=== PATIENT | female | born 1980 | race Caucasian/White ===

== ENCOUNTER 2018-10-12 12:34 | Outpatient (REF) | payer BC, SELFPAY | END 2018-10-12 12:54 | LOC: LBN 12:34 | PROVIDERS: PCP Internal Medicine; Visit Provider Nurse Practitioner Family | DX: R35.0 Frequency of micturition (principal) | CPT/HCPCS: 87086 ==

== ENCOUNTER 2019-01-03 16:30 | Emergency (ER) | payer BC, SELFPAY ==
[2019-01-03 16:32] VITALS: BP 116/86; PULSE 83; RESP 16; TEMP 37; O2SAT 96
--- NOTE | 2019-01-03 16:43 | DI.RAD_ITS ---
SYMPTOM/DIAGNOSIS: PAIN, AFTER CAUGHT IN DOOR. RIGHT INDEX FINGER: No fracture or dislocation is seen. IMPRESSION: Negative right index finger
--- NOTE | 2019-01-03 16:44 | ED.GENADUL_ITS ---
Discharge Plan Disposition Patient Disposition: HOME Condition: Improving Discharge Details Chief Complaint: Orthopedic Clinical Impression: Contusion of right index finger, Abrasion Primary Care Provider: Tobias Almonte ED Provider: Dionisio Stokes Home Meds and New Rx's Prescriptions: Continued collagen 1,000 mg tablet 1,000 mg PO DAILY RF: 0 Mirena 1 EACH intrauterine device 1 ea Intrauterine DAILY RF: 0 cholecalciferol (vitamin D3) [Vitamin D3] 2,000 UNIT capsule 2,000 unit PO PRN RF: 0 Hair, Skin and Nails Advanced 1 EACH tablet 1 ea PO DAILY RF: 0 Fiber Gummies 2 gram Tablet,Chewable 2 PO DAILY RF: 0 Discharge Instructions Instructions: Contusion in Adults (ED), Abrasion (ED) Additional Instructions: Leave splint in place for 48 to 72 hours. Then may remove stockinette. Ice to reduce pain and swelling. You may continue to use Tylenol if needed for discomfort. The Dermabond and Steri-Strips will wear off in approximately 7 to 10 days time. Return if you develop a fever, redness, discharge from the wound or any other acute concern Medical Decision Making 38-year-old female whose right index finger was caught in a car door. She arrives with pain and evidence of volar distal bruising and a small avulsion/abrasion to the skin. Referred for x-ray which does not reveal underlying bony fracture. Patient improved following oral analgesia and topical ice. X-ray does not reveal underlying fracture. Abrasion/slight avulsion of the skin is repaired with Steri-Strips and small amount of Dermabond. Patient placed in splint for comfort and protection. She understands homecare and return precautions. She is stable and improved at this time. HPI General Mode of arrival: ambulatory . Date/Time Provider Initiated Documentation: 01/03/19 16:40 . Limitations to Documentation: no limitations . Information obtained by: patient . History of Present Illness 38 year old F presents to the emergency department with the chief complaint of Right index finger pain after caught in car door, described as moderate, Quality is described as dull, and is localized to the right and upper extremity. Patient started experiencing this minute(s) and it has been constant. No relieving factors improve symptom(s), No exacerbating factors reported . Patient notes no other symptoms.. Patient did receive the following tr eatments prior to arrival, other (Ice) Related Data Home Medications Medication Instructions Recorded Confirmed Mirena 1 ea INTRAUTERINE DAILY 03/22/13 01/03/19 Hair, Skin and Nails Advanced 1 ea PO DAILY 10/11/16 01/03/19 cholecalciferol (vitamin D3) 2,000 unit PO PRN 10/11/16 01/03/19 [Vitamin D3] collagen 1,000 mg PO DAILY 10/12/18 01/03/19 Fiber Gummies 2 PO DAILY 01/03/19 Allergies Allergy/AdvReac Type Severity Reaction Status Date / Time environmental Allergy unknown Uncoded 01/03/19 16:43 General Stated Complaint: Orthopedic DONOVAN: 4 Review of Systems Review of Systems No other injury. Patient has otherwise been well [facility] Medical History IUD surveillance (Acute 09/29/15) Migraine (Chronic) Social History Smoking/Tobacco Use Status: Current-Occasional Alcohol Intake: never Drug use: Never Do you feel safe at home: Yes Do you feel safe in your relationship?: Yes Exam Narrative Exam Narrative: GEN: awake, alert, oriented 3. Pleasant, well groomed, interactive. HEAD: Normocephalic, atraumatic EXT: Full ROM, the right index finger has ecchymosis on the volar surface radial side and an abrasion/slight avulsion on the volar surface ulnar side. Distal sensation is intact. Neuro: Grossly normal neurologic exam, conversant, interactive. Psych: Speech fluent, thoughts congruent, affect normal Course Vital Signs Temperature 37.0 C 01/03/19 16:32 Pulse 83 01/03/19 16:32 Respiratory Rate 16 01/03/19 16:32 Blood Pressure 116/86 01/03/19 16:32 Pulse Oximetry 96 01/03/19 16:32 Temperature 37.0 C 01/03/19 16:32 Temperature Source Skin 01/03/19 16:32 Pulse 83 01/03/19 16:32 Respiratory Rate 16 01/03/19 16:32 Blood Pressure 116/86 01/03/19 16:32 Blood Pressure Position Sitting 01/03/19 16:32 Pulse Oximetry 96 01/03/19 16:32 Oxygen Delivery Method Room Air 01/03/19 16:32 Oxygen Flow Rate 0 01/03/19 16:32 Pain Level 10 01/03/19 16:32
[2019-01-03] MEDS: Ibuprofen 800 MG TAB PO (16:49)
--- NOTE | 2019-01-03 17:44 | DI.VRAD_ITS ---
EXAM: XR Right Finger(s) EXAM DATE/TIME: 01/03/2019 4:44 PM CLINICAL HISTORY: 38 years old, female; Injury or trauma; Injury history: Shut in car door, distal laceration; Initial encounter; Blunt trauma (contusions or hematomas; Right; Index finger TECHNIQUE: Imaging protocol: XR Right fingers. Views: Minimum 2 views. COMPARISON: CR RIGHT WRIST COMPLETE 10/16/2012 18:38 FINDINGS: Bones/joints: Unremarkable. Soft tissues: Mild soft tissue swelling. IMPRESSION: No acute bony injury. Dictated and Authenticated by: Rosalinda Espinoza MD. Ordering:NICKI Nichole MD
[2019-01-03 18:21] VITALS: BP 116/86; PULSE 83; RESP 16; TEMP 37; O2SAT 96
== END 2019-01-03 18:21 | disposition home or self-care (01) ==
PROVIDERS: Emergency Provider Emergency Medicine; PCP Internal Medicine
DX: S60.410A Abrasion of right index finger, initial encounter (principal); W23.0XXA Caught, crushed, jammed, or pinched between moving objects, initial encounter
CPT/HCPCS: 12001; 99283; 73140

== ENCOUNTER 2019-03-29 16:35 | Outpatient (REF) | payer BC, SELFPAY | END 2019-03-29 16:55 | LOC: LBN 16:35 | PROVIDERS: PCP Internal Medicine; Visit Provider Nurse Practitioner Family | DX: R10.31 Right lower quadrant pain (principal) | CPT/HCPCS: 87077; 87086; 87186 ==

== ENCOUNTER 2019-07-16 17:28 | Outpatient (REF) | payer BC, SELFPAY | END 2019-07-16 17:48 | LOC: NCHCN 17:28 | PROVIDERS: PCP Internal Medicine; Visit Provider Nurse Practitioner Family | DX: R39.9 Unspecified symptoms and signs involving the genitourinary system (principal) | CPT/HCPCS: 87086 ==

== ENCOUNTER 2019-08-15 11:24 | Outpatient (REF) | payer BC, SELFPAY ==
[2019-08-16 15:17] LABS: Chlamydia Result Negative (Negative); GC Result Negative (Negative)
== END 2019-08-15 11:44 ==
LOC: LBN 11:24
PROVIDERS: PCP Internal Medicine; Visit Provider Nurse Practitioner Family
DX: R30.0 Dysuria (principal); Z11.3 Encounter for screening for infections with a predominantly sexual mode of transmission
CPT/HCPCS: 87491; 87591; 87086

== ENCOUNTER 2020-11-30 13:05 | Outpatient (REF) | payer BC, SELFPAY | END 2020-11-30 13:06 | disposition home or self-care (01) | LOC: NCHCN 13:05 | PROVIDERS: PCP Internal Medicine; Visit Provider Internal Medicine | DX: N39.0 Urinary tract infection, site not specified (principal) | CPT/HCPCS: 87086; 87480; 87510; 87660 ==

== ENCOUNTER 2021-07-15 12:10 | Outpatient (REF) | payer BC, SELFPAY ==
--- NOTE | 2021-07-15 11:15 | PAPFT_PTH ---
PATIENT: Pradip Amaya LOC: [facility] U#:[id number] AGE/SX: 41/F ROOM: RE07/15/[address]: JENNIFER Potts : 1980 BED: DIS: 07/15/2021 SPEC #: [id number] RECD: 07/15/21 16:36 STATUS: DELLA REQ #: [id number] WILLEM: 07/15/21 11:[address]: Kathia Main DEPT: [facility] Cytology RECD BY: Amanda Gomez ENTERED: 07/15/21 16:36 SP TYPE: PAPFT OTHR DR: Tobias Almonte Tissues: 1 - CX/ENDOCX FOR PAP SMEARS Procedures: PAP THIN PREP/[facility] Screening HPV DNA PROBE Comments: [id number]
[2021-07-16 18:10] LABS: Chlamydia Result Negative (Negative); GC Result Negative (Negative)
== END 2021-07-15 12:11 | disposition home or self-care (01) ==
LOC: LBN 12:10
PROVIDERS: PCP Internal Medicine; Visit Provider Nurse Practitioner Family
DX: Z11.3 Encounter for screening for infections with a predominantly sexual mode of transmission (principal); Z12.4 Encounter for screening for malignant neoplasm of cervix; Z11.51 Encounter for screening for human papillomavirus (HPV)
CPT/HCPCS: 87491; 87591; 88142; 87624

== ENCOUNTER 2022-05-26 12:03 | Outpatient (REF) | payer BC, SELFPAY ==
[2022-05-26 14:22] LABS: Abs Immature Grans 0.01 10^3/uL (0.0-0.06); Absolute Basophil Count 0.05 10^3/uL (0.0-0.2); Absolute Eosinophil Count 0.13 10^3/uL (0.0-0.7); Absolute Lymphocyte Count 2.21 10^3/uL (1.2-3.4); Absolute Monocyte Count 0.44 10^3/uL (0.1-0.8); Absolute Neutrophil Count 3.47 10^3/uL (1.2-6.7); Basophils % 0.8; Eosinophils % 2.1; HCT 39.2 % (36.0-46.0); HGB 13.2 g/dL (11.2-15.7); Immature Grans % 0.2; MCH 31.7 pg (27.0-33.0); MCHC 33.7 % (32.0-36.0); MCV 94 fL (80-95); MPV 10.1 fL (8.0-11.0); Neutrophils % 54.9; Platelet Count 256 10^3/uL (130-400); RBC 4.17 10^6/uL (3.93-5.22); RDW 12.2 % (11.7-14.6); RDW-SD 42.1 fL; WBC 6.31 10^3/uL (4.4-10.8)
[2022-05-26 15:01] LABS: Anion Gap 8.4 mmol/L (3-11); BUN 11 mg/dL (7-18); CO2 28.6 mmol/L (21.0-32.0); CREATININE 0.6 mg/dL (0.55-1.02); Chloride 104 mmol/L (98-107); Ferritin 107 ng/mL (8-252); Glucose 86 mg/dL (74-106); Iron 114 ug/dL (50-170); Potassium 4.2 mmol/L (3.5-5.1); Sodium 141 mmol/L (136-145); TSH (W/Ref FT4) 1.66 uIU/mL (0.36-3.74); Total Iron Binding Capacity 269 ug/dL (250-450); Transferrin Sat 42 % (15-50); Vitamin B12 1053 pg/mL (193-986)
== END 2022-05-26 12:04 | disposition home or self-care (01) ==
LOC: NCHCN 12:03
PROVIDERS: PCP Internal Medicine; Visit Provider Nurse Practitioner Family
DX: R53.83 Other fatigue (principal); R00.2 Palpitations; K59.00 Constipation, unspecified; J31.0 Chronic rhinitis
CPT/HCPCS: 80048; 82607; 82728; 83540; 83550; 84443; 85025

== ENCOUNTER 2022-07-27 12:00 | Outpatient (REF) | payer BC, SELFPAY | END 2022-07-27 12:01 | disposition home or self-care (01) | LOC: NCHCN 12:00 | PROVIDERS: PCP Internal Medicine; Visit Provider Family Medicine | DX: R30.0 Dysuria (principal) | CPT/HCPCS: 87077; 87086; 87186 ==